=== PATIENT | female | born 1935 | race Caucasian/White ===

== ENCOUNTER 2020-08-10 08:05 | Inpatient (IN) | payer OTHER, MEDICAID ==
--- NOTE | 2020-08-09 19:30 | NUR ---
Opening Shift Note Assumed care of patient, awake and alert. No S/S of distress/SOB or pain. Insructed on POC and to callfor assist PRN, will continue to monitor for changes Q1hr and PRN. Addendum: 08/10/20 at 2347 by TRAVIS PRAJAPATI RN RN Correct date/time 08/10/20 8301
[~2020-08-10] VITALS: Ht 157.5 cm; Wt 57.7 kg
[2020-08-10 08:52] LABS: Basophils # (auto) 0 10 ^3/uL (0-0.2); Eosinophils # (auto) 0.1 10 ^3/uL (0-0.8); Hematocrit 36.6 % (36.0-46.0); Monocytes # (auto) 0.4 10 ^3/uL (0-1.3); Neutrophils # (auto) 3.4 10 ^3/uL (1.6-8.6); Nucleated Red Blood Cells % 0.1 %
[2020-08-10 08:57] LABS: Basophils % (auto) 0.7 % (0.0-2.0); Eosinophils % (auto) 1.5 % (0.0-7.0); Hemoglobin 12.5 g/dL (12.2-16.2); Lymphocytes # (auto) 1.5 10 ^3/uL (0.4-5.4); Lymphocytes % (auto) 27.7 % (10.0-50.0); Mean Corpuscular Hemoglobin 35.9 pg (28.0-32.0); Mean Corpuscular Hgb Conc. 34.2 g/dL (32.0-36.0); Mean Corpuscular Volume 104.9 fL (80.0-100.0); Monocytes % (auto) 7.1 % (0.0-12.0); Platelet Count (auto) 246 10^3/uL (140-450); Red Blood Cells 3.49 10^6/uL (4.0-5.20); Red Cell Distribution Width 13.5 % (11.8-14.3); White Blood Cell 5.4 10^3/uL (4.4-10.8)
[2020-08-10] MEDS ORDERED: SODIUM CHLORIDE 0.9% 1,000 ML IV ONE ×3 (09:00→11:45)
[2020-08-10 09:52] LABS: Albumin 3.7 g/dL (3.4-5.0); Calcium 8.9 mg/dL (8.5-10.1); Potassium 3.9 mmol/L (3.5-5.1)
[2020-08-10 09:56] LABS: Bilirubin, Total 0.6 mg/dL (0.2-1.0); Total Protein 6.8 g/dL (6.4-8.2)
[2020-08-10] MEDS ORDERED: ONDANSETRON HCL 4 MG/2 ML VIAL IV ONE (10:45)
[2020-08-10] MEDS ORDERED: MORPHINE SULF INJ 2 MG/ML SYRINGE 1ML IV ONE (10:45)
[2020-08-10 11:09] LABS: INR 0.94 (0.9-1.15); Partial Thromboplastin Time 22.9 sec (23.0-31.2)
[2020-08-10] MEDS ORDERED: HYDROcodone-ACET 10/325MG TAB PO PRN (11:45)
[2020-08-10] MEDS ORDERED: NITROGLYCERIN 0.4 MG SL TAB SL PRN (11:45)
[2020-08-10] MEDS ORDERED: MORPHINE SULF INJ 2 MG/ML SYRINGE 1ML IV PRN (11:45)
[2020-08-10] MEDS ORDERED: ONDANSETRON HCL 4 MG/2 ML VIAL IV PRN (11:45)
[2020-08-10] MEDS ORDERED: hydrALAZINE HCL 20 MG/ML VL IV PRN (12:00)
--- NOTE | 2020-08-10 14:20 | NUR ---
MS admit from ER ALLYSSA NOLAN admitted to tele/MS after SBAR received. Patient oriented to MARINA WANG, RN primary RN, unit, room, bed, and unit policies regarding patient care and visiting hours. Patient weighed by bedscale and encouraged to call if they need something. All questions and concerns addressed, patient verbalized understanding.
[2020-08-10] MEDS ORDERED: VALA1TAB34 PO (15:07)
[2020-08-10] MEDS ORDERED: DEX4T PO (15:07)
[2020-08-10] MEDS ORDERED: METH-818 PO (15:07)
[2020-08-10] MEDS ORDERED: BACL10TA PO (15:07)
[2020-08-10 15:30] LABS: Urine Amorphous Crystal FEW /hpf (None Seen); Urine Bacteria NONE SEEN /hpf (None Seen); Urine Blood Negative /uL (Negative); Urine Hyaline Cast FEW /lpf (0 - 2); Urine Mucus FEW (None Seen); Urine Specific Gravity 1.014 (1.001-1.035); Urine WBC 3 /hpf (0 - 5)
[2020-08-10 17:00] VITALS: BP 160/74
--- NOTE | 2020-08-10 18:28 | NUR ---
ELAINE CATHETER REMOVED PATIENT COMPLAINING OF BURNING AT SITE OF CATHETER. PATIENT SCREAMING IN DISCOMFORT AND ADAMANTLY REQUESTING THE CATHETER TO BE REMOVED. EDUCATED PATIENT ON IMPORTANCE OF LEAVING CATHETER IN DUE TO A PROCEDURE TO BE TOMORROW. HOWEVER PATIENT CONTINUED TO SHOUT AND REQUEST THE CATHETER TO BE REMOVED. ELAINE CATHETER REMOVED ASEPTICALLY WITH NO TRAUMA NOTED AT THE SITE.
--- NOTE | 2020-08-10 19:29 | NUR ---
ENDORSED CARE TO NOC SHIFT RN
[2020-08-10 20:00] VITALS: BP 156/96
[2020-08-10] MEDS ORDERED: LORazepam 2MG/ML-1ML VIAL IV PRN (21:15)
[2020-08-10 22:00] VITALS: BP 156/96
[2020-08-11 05:00] VITALS: BP 149/87
[2020-08-11 05:38] LABS: Basophils # (auto) 0 10 ^3/uL (0-0.2); Basophils % (auto) 0.7 % (0.0-2.0); Eosinophils # (auto) 0.2 10 ^3/uL (0-0.8); Eosinophils % (auto) 3.6 % (0.0-7.0); Hemoglobin 11.6 g/dL (12.2-16.2); Monocytes # (auto) 0.4 10 ^3/uL (0-1.3); Neutrophils # (auto) 2.3 10 ^3/uL (1.6-8.6); Nucleated Red Blood Cells % 0.1 %; White Blood Cell 4.3 10^3/uL (4.4-10.8)
[2020-08-11 05:42] LABS: Hematocrit 33.9 % (36.0-46.0); Lymphocytes # (auto) 1.4 10 ^3/uL (0.4-5.4); Lymphocytes % (auto) 32.3 % (10.0-50.0); Mean Corpuscular Hemoglobin 35.9 pg (28.0-32.0); Mean Corpuscular Hgb Conc. 34.3 g/dL (32.0-36.0); Mean Corpuscular Volume 104.6 fL (80.0-100.0); Monocytes % (auto) 8.8 % (0.0-12.0); Neutrophils % (auto) 54.6 % (37.0-80.0); Platelet Count (auto) 237 10^3/uL (140-450); Red Blood Cells 3.24 10^6/uL (4.0-5.20); Red Cell Distribution Width 13.6 % (11.8-14.3)
[2020-08-11 05:55] LABS: BUN/Creatinine Ratio 16.1; Calcium 8.8 mg/dL (8.5-10.1); Potassium 4.5 mmol/L (3.5-5.1)
--- NOTE | 2020-08-11 07:27 | NUR ---
ENDORSED CARE TO AM SHIFT RN
--- NOTE | 2020-08-11 07:30 | NUR ---
Opening Shift Note Report received from date night caregiver RN. Assumed care of patient, sleeping. Sitter at bedside. No S/S of distress/SOB or pain. Will continue to monitor for changes Q1hr and PRN.
[2020-08-11 09:00] VITALS: BP 150/98
--- NOTE | 2020-08-11 11:00 | NUR ---
DR ZULETA PAGED DR ZULETA WAS PAGED FOR CARDIAC CLEARANCE.
--- NOTE | 2020-08-11 11:10 | NUR ---
DR ZULETA RESPONDED PER DR ZULETA HE WILL BE IN SOON.
--- NOTE | 2020-08-11 11:23 | NUR ---
LANDSCAPE ACCOUNT MANAGER AT BEDSIDE.
--- NOTE | 2020-08-11 11:30 | NUR ---
RECEIVED CALL FROM MD PER DR SHELBY, PT IS RESCHEDULED FOR SURGERY TOMORROW. HOUSE SHIFT AND DR ZULETA MADE AWARE.
--- NOTE | 2020-08-11 11:30 | NUR ---
WOUND CARE NOTE: IN TO SEE PATIENT AT THIS TIME PER WOUND CARE CONSULT REQUEST. PATIENT ADMITTED TO [facility] WITH DIAGNOSIS OF HIP FRACTURE. SHE IS SCHEDULED FOR SURGERY WITH DR. SHELBY. PATIENT NOTED TO HAVE PRESSURE INJURIES TO BILATERAL BUTTOCKS AND INTRAGLUTEAL FOLD SACRUM UPON ADMIT. WOUND PHOTOS TAKEN AT THAT TIME BY BEDSIDE NURSE FOR REFERENCE. CURRENT EMIR SCORE IS 14. PATIENT IS RESTING ON RIGHT SIDE. BILATERAL HEELS ARE LIGHT RED, BLANCHABLE. SHE HAS EARLY STAGE 3 PRESSURE INJURIES TO BILATERAL BUTTOCKS AND INTRAGLUTEAL FOLD SACRUM. ADIPOSE TISSUE IS NOTED IN SMALL AMOUNTS IN ALL THREE WOUNDS. SCANT SEROUS DRAINAGE NOTED. APPLIED THERAHONEY AND OPTIFOAM GENTLE DRESSINGS TO ALL WOUNDS. UNABLE TO PLACE PATIENT ON AIR MATTRESS D/T HER HIP FRACTURE. NO OTHER SKIN INTEGRITY ISSUES NOTED. RECOMMEND: FREQUENT TURN SCHEDULE Q 2 HOURS, PRN CONDITION PERMITS, WITH PRESSURE REDISTRIBUTION USING PILLOWS/WEDGES, DAILY/PRN DRESSING CHANGES TO BILATERAL BUTTOCKS, SACRUM WOUNDS, DIETARY CONSULT, SKIN/WOUND CARE PLAN, CONTINUED MONITORING BY WOUND CARE TEAM. Addendum: 08/11/20 at 1520 by Khushboo Sherwood RN Amended: Links added.
[2020-08-11 13:00] VITALS: BP 124/82
[2020-08-11 16:26] VITALS: BP 149/69
--- NOTE | 2020-08-11 19:05 | NUR ---
CHANGE OF SHIFT REPORT GIVEN TO PROPERTY CLERK RN. PT STABLE AT THIS TIME. SITTER AT BEDSIDE.
--- NOTE | 2020-08-11 19:06 | NUR ---
Opening Shift Note Assumed care of patient, awake and alert. No S/S of distress/SOB or pain. Insructed on POC and to callfor assist PRN, will continue to monitor for changes Q1hr and PRN.
[2020-08-11 20:00] VITALS: BP 132/80
[2020-08-11 22:05] VITALS: BP 132/80
[2020-08-12] MEDS ORDERED: HALOPERIDOL LACTATE 5 MG/ML INJ VIAL IM ONE (01:15)
[2020-08-12 05:25] VITALS: BP 154/87
[2020-08-12 07:11] LABS: Basophils # (auto) 0 10 ^3/uL (0-0.2); Basophils % (auto) 0.7 % (0.0-2.0); Eosinophils # (auto) 0.1 10 ^3/uL (0-0.8); Eosinophils % (auto) 2.5 % (0.0-7.0); Hematocrit 34.7 % (36.0-46.0); Hemoglobin 12.1 g/dL (12.2-16.2); Lymphocytes # (auto) 1.4 10 ^3/uL (0.4-5.4); Lymphocytes % (auto) 31.3 % (10.0-50.0); Mean Corpuscular Hemoglobin 36.1 pg (28.0-32.0); Mean Corpuscular Hgb Conc. 34.8 g/dL (32.0-36.0); Mean Corpuscular Volume 103.9 fL (80.0-100.0); Monocytes # (auto) 0.3 10 ^3/uL (0-1.3); Monocytes % (auto) 7.8 % (0.0-12.0); Neutrophils # (auto) 2.6 10 ^3/uL (1.6-8.6); Neutrophils % (auto) 57.7 % (37.0-80.0); Nucleated Red Blood Cells % 0.1 %; Platelet Count (auto) 240 10^3/uL (140-450); Red Blood Cells 3.34 10^6/uL (4.0-5.20); Red Cell Distribution Width 13.4 % (11.8-14.3); White Blood Cell 4.5 10^3/uL (4.4-10.8)
[2020-08-12 07:23] LABS: BUN/Creatinine Ratio 19.5; Calcium 8.9 mg/dL (8.5-10.1); Potassium 4.1 mmol/L (3.5-5.1)
--- NOTE | 2020-08-12 07:23 | NUR ---
OPENING SHIFT NOTE ASSUMED CARE OF PATIENT FROM [employer] SALESPERSON RN CHINO. PATIENT IS AWAKE, ALERT AND ORIENTED X2 (PERSON AND PLACE). REORIENTED PATIENT TO TIME AND SITUATION. INSTRUCTED PATIENT ON POC, PATIENT VERBALIZED UNDERSTANDING. PATIENT HAS NO S/S OF DISTRESS/SOB OR PAIN. BED IS IN LOWEST POSITION WITH SIDE RAILS RAISED X2, BED WHEELS LOCKED, SITTER AT BEDSIDE AND CALL LIGHT IS WITHIN REACH. WILL CONTINUE TO MONITOR.
--- NOTE | 2020-08-12 07:29 | NUR ---
CARE ENDORSED TO AM SHIFT RN
--- NOTE | 2020-08-12 07:40 | NUR ---
MD SHELBY AT BEDSIDE PER MD HE WILL NOT BE DOING SURGERY AND PATIENT CAN RESUME DIET AND CAN BE DISCHARGED WILL FOLLOW THROUGH WITH ORDERS.
[2020-08-12 13:00] VITALS: BP 146/66
--- NOTE | 2020-08-12 13:08 | NUR ---
Nutrition Assessment Notes Please refer to link for full assessment notes. Est Energy needs: 3664-2754 kcals (20-23 kcal/kgBW) Est Protein needs: 58-63 gms/day (1.0-1.1 gm/kgBW) Will continue to monitor and reassess prn. Addendum: 08/12/20 at [address] Amended: Links added.
--- NOTE | 2020-08-12 14:49 | NUR ---
Patient will be going to [facility] Acute room 101 bed 3-nurse to call report to [phone], Dr. Kate Hinds is the accepting physician. Per [facility] Adjunct Nursing Faculty Jennifer Mcbride ( phone [phone]) to corn picker patient at [phone]-she has spoken with patient's son and he is agreeable. I relayed this information to nurse Apple.
--- NOTE | 2020-08-12 16:02 | NUR ---
assessment re: ss consult Patient is a 85 year old female who is confused. Per patients son Zaid prior to admission patient lived home alone and took care of her own ADL"S. Per Zaid he came to patients [place] to pay bills and shop for her. Per Zaid patient has a fall at home. Patient has a ss consult for SNF placement. Per Zaid he agrees to SNF. I informed Zaid of patients ss consult for living alone, needing additional resources, needs help with pets and social issues with son. Per Zaid patient will need home health once she leaves SNF. Per Zaid he will be caring for patient pets while she is gone. Per Zaid the social issues are that he cannot stay with patient 31/05. I have provided Zaid with private pay caregiver information for when patient returns home after rehab. Zaid verbalized understanding and agreed to discharge plan to SNF. Addendum: 08/12/20 at 1607 by Cielo ARGUETA Amended: Links added.
--- NOTE | 2020-08-12 18:20 | NUR ---
REPORT GIVEN TO MARIO AT [facility]
--- NOTE | 2020-08-12 19:26 | NUR ---
Discharge instructions given as ordered. Encourage to follow up with PMD as instructed. All questions and concerns addressed. Patient verbalized understanding. Medication reconciliation form completed and copy given to patient. IV removed with catheter intact, pressure dressing applied, gallegos catheter removed. Patient taken to vehicle via gurney with all personal belongings, accompanied by firehawk. No distress noted at time of departure.
== END 2020-08-12 19:40 | DRG 554 ==
LOC: ER 08:05 → EDBD 08:05 → OVERFLOW 08:06 → CENTRAL 15:06
PROVIDERS: ADMIT Internal Medicine; ATTEND Internal Medicine
DX: M16.11 Unilateral primary osteoarthritis, right hip (principal); M17.11 Unilateral primary osteoarthritis, right knee; I12.9 Hypertensive chronic kidney disease with stage 1 through stage 4 chronic kidney disease, or unspecified chronic kidney disease; N18.30 Chronic kidney disease, stage 3 unspecified; W18.39XA Other fall on same level, initial encounter; Y93.01 Activity, walking, marching and hiking; F32.9 Major depressive disorder, single episode, unspecified; Z88.8 Allergy status to other drugs, medicaments and biological substances; Y92.9 Unspecified place or not applicable; Y93.89 Activity, other specified; Y92.89 Other specified places as the place of occurrence of the external cause; Y99.8 Other external cause status; Z80.8 Family history of malignant neoplasm of other organs or systems; Z84.89 Family history of other specified conditions; Z79.899 Other long term (current) drug therapy; Z20.828 Contact with and (suspected) exposure to other viral communicable diseases
CPT/HCPCS: 36415; 51702; 71045; 73502; 73562; 73700; 80048; 80053; 81001; 83735; 85025; 85610; 85730; 86850; 86900; 86901; 93005; 93306; 96360; G0378; J2405